=== PATIENT | male | born 1990 | race Caucasian/White ===

== ENCOUNTER 2018-10-31 14:08 | Emergency (ER) | payer SELFPAY ==
[2018-10-31 14:33] VITALS: BP 135/86; PULSE 101; TEMP 98.5; BMI 33.8
--- NOTE | 2018-10-31 15:03 | PDOC ---
History of Present Illness - General Chief Complaint: Nasal Bleeding Stated Complaint: VOMITING BLOOD Time Seen by Provider: 10/31/18 14:32 History Source: Patient Exam Limitations: No Limitations Past History - Travel Traveled outside of the country in the last 30 days: No Close contact w/someone who was outside of country & ill: No - Past Medical History Allergies/Adverse Reactions: Allergies Allergy/AdvReac Type Severity Reaction Status Date / Time No Known Allergies Allergy Verified 10/31/18 14:30 Home Medications: Ambulatory Orders Cetirizine HCl [Zyrtec -] 10 mg PO DAILY #30 tablet 10/31/18 Fluticasone Prop 0.05% Nasal [Flonase -] 1 - 2 spray NS DAILY #1 spray.pump 12/14 Humidifier [Cool Mist Humidifier] 1 each MC DAILY #1 each 10/31/18 Sodium Chloride [Nasal [place]] 44 ml NS BID #1 bottle 10/31/18 CVA: No COPD: No - Immunization History Immunization Up to Date: Yes - Suicide/Smoking/Psychosocial Hx Smoking History: Never smoked Information on smoking cessation initiated: No Hx Alcohol Use: No Drug/Substance Use Hx: No Review of Systems - Review of Systems Able to Perform ROS?: Yes Comments:: 10/31/18 14:58 CONSTITUTIONAL: Absent: fever, chills, diaphoresis, generalized weakness, malaise, loss of appetite HEENT: Present: nasal bleeding Absent: rhinorrhea, nasal congestion, throat pain, throat swelling, difficulty swallowing, mouth swelling, ear pain, eye pain, visual Changes SKIN: Absent: rash, itching, pallor NEUROLOGIC: Absent: headache, focal weakness or paresthesias, dizziness, unsteady gait, seizure, mental status changes, bladder or bowel incontinence PSYCHIATRIC: Absent: anxiety, depression, suicidal or homicidal ideation, hallucinations. Is the patient limited Latvian proficient: No *Physical Exam - Vital Signs Last Vital Signs Temp Pulse Resp BP Pulse Ox 98.5 F 101 H 17 135/86 97 10/31/18 14:30 10/31/18 14:30 10/31/18 14:30 10/31/18 14:30 10/31/18 14:30 - Physical Exam Comments: 10/31/18 15:03 GENERAL: Well developed, well nourished. Awake and alert. No acute distress. HEENT: Normocephalic, atraumatic. PERRLA, EOMI. No conjunctival pallor. Sclera are non- icteric. Moist mucous membranes. Nasal turinates are injected. Scabbing noted to the septal wall of the L nare without bleeding. Oropharynx is clear. NECK: Supple. Full ROM. No JVD. Carotid pulses 2+ and symmetric, without bruits. No thyromegaly. No lymphadenopathy. CARDIOVASCULAR: Regular rate and rhythm. No murmurs, rubs, or gallops. Distal pulses are 2+ and symmetric. PULMONARY: No evidence of respiratory distress. Lungs clear to auscultation bilaterally. No wheezing, rales or rhonchi. SKIN: Warm and dry. Normal capillary refill. No rashes. No jaundice. NEUROLOGICAL: Alert, awake, appropriate. Cranial nerves 2-12 intact. No deficits to light touch and temperature in face, upper extremities and lower extremities. No motor deficits in the in face, upper extremities and lower extremities. Normoreflexic in the upper and lower extremities. Normal speech. Toes are down- going bilaterally. Gait is normal without ataxia. PSYCHIATRIC: Cooperative. Good eye contact. Appropriate mood and affect. Medical Decision Making - Medical Decision Making 10/31/18 15:17 the patient is a 28-year-old male with no past medical history who presents to the emergency department today for nosebleeds. He states that he noticed his nose was bleeding and that he was coughing up blood at the same time. He states that he had tilted his head back to stop the bleeding. He states that the bleeding spontaneously resolved on its own. Denies fevers, chills, sore throat, earache, cough, chest pain, shortness of breath, nausea, vomiting and diarrhea. Patient recently came to the [facility] from the [facility] [place] approximately 2 months ago. A/P: Nasal bleeding On exam nasal turbinates are injected with a scab present in the left turbinate. Lungs are clear to auscultation bilaterally ears without signs of infection, no bleeding down the back of throat, erythema or exudates or edema noted. Suspect frequent nosebleeds due to seasonal allergies and dryness. No bleeding at this time. We will discharge home with symptomatic relief, PCP follow-up. Patient reports that he has history of headaches however does not have a headache at this time. Will give neurology referral. I discussed the physical exam findings, ancillary test results and final diagnoses with the patient. I answered all of the patient's questions. The patient was satisfied with the care received and felt comfortable with the discharge plan and treatment plan. The Patient agrees to follow up with the primary care physician/specialist within 24-72 hours. Return precautions were given. *DC/Admit/Observation/Transfer Diagnosis at time of Disposition: Nasal bleeding, Seasonal allergies - Discharge Dispostion Disposition: HOME Condition at time of disposition: Stable Decision to Admit order: No - Prescriptions Prescriptions: Cetirizine HCl [Zyrtec -] 10 mg PO DAILY #30 tablet Fluticasone Prop 0.05% Nasal [Flonase -] 1 - 2 spray NS DAILY #1 spray.pump Humidifier [Cool Mist Humidifier] 1 each MC DAILY #1 each Sodium Chloride [Nasal [place]] 44 ml NS BID #1 bottle - Referrals Referrals: Yo Truong MD [Staff Physician] - Melissa Hendricks MD [Staff Physician] - - Patient Instructions Printed Discharge Instructions: DI for Nosebleed Additional Instructions: There is no bleeding currently. For future nosebleeds, please apply direct pressure to the nose for 10 minutes without stopping. Do not tilt the head backwards. Do not blow your nose in between. You may apply ice to the nose. Please purchase normal saline nasal spray at the pharmacy. Use this in the morning and night to help keep your nose moist. A humidifier may help as well. Take the zyrtec daily. Use the Flonase in one week. Please follow-up with primary care. A referral has been provided. A neurology referral has also been provided to you. Actualmente no hay sangrado. Para futuras hemorragias nasales, por favor aplique presin directa sobre la nariz anne 10 minutos sin detenerse. No incline la luis alfredo hacia atrs. No te vueles la nariz en el medio. Puede aplicar hielo en la nariz. Por favor, compre aerosol nasal salina normal en la farmacia. Use esto por la maana y por la noche para ayudar a mantener la nariz hmeda. Un humidificador tambin puede ayudar. [place] el Zyrtec diariamente. [place] la Flonase en radha semana. Por favor, neftaly un seguimiento con la atencin primaria. Se shelton proporcionado radha remisin. Tambin se le shelton proporcionado radha referencia de Neurologa. Print Language: DIVEHI - Post Discharge Activity Forms/Work/School Notes: Back to Work
== END 2018-10-31 15:30 | disposition home or self-care (01) ==
LOC: JERFT 14:08
DX: J30.2 Other seasonal allergic rhinitis (principal); R04.0 Epistaxis
CPT/HCPCS: 99281-25